=== PATIENT | female | born 1960 | race Caucasian/White ===

== ENCOUNTER 2016-08-13 13:29 | Emergency (ER) | payer OTHER ==
[2016-08-13] MEDS ORDERED: LIDOCAINE/PRILOCAINE CREAM 5 GM TUBE TOPICAL ONE (13:58)
[2016-08-13] MEDS ORDERED: BACITRACIN 1 APP/PKT PKT TOPICAL ONE (14:17)
--- NOTE | 2016-08-13 14:19 | ER PHYSICIAN DOCUMENTATION ---
Physician Documentation [facility], [place] Name:Shonda Lopez Age:56 yrs Sex:Female :1960 Arrival Date:08/13/2016 Time:13:22 Bed4 Private MD: Boy Viera Disposition: 08/13/16 13:48 Discharged to Home/Self Care. Impression: Finger Laceration. - Condition is Good. - Discharge Instructions: FINGER LACERATION - LACERATION, Hand. - Medical Reconciliation form form. - Follow up: Private Physician; When: As needed; Reason: Recheck today's complaints. - Problem is new. - Symptoms have improved. HPI: 08/13 13:27 This 56 yrs old presents to ER with complaints of Laceration To Hand - Left pinky tl1 finger. 13:27 The laceration(s) is(are) located on the RADIAL aspect of distal phalanx of left little tl1 finger. 13:27 This occurred just [employer] with a knife, while cutting a sandwich. It seemed to bleed a lot tl1 and she thought she might need a stitch. No other complaint. . Historical: - Allergies: Ibuprofen; - Home Meds: 1. metoprolol tartrate 25 mg oral tab Unknown once daily - PMHx: Hypertension; - Tetanus: < 10 years. - Ebola Screening: : No symptoms or risks identified at this time. . - Immunization history: Flu Vaccine < 1 year. - Social history: Smoking status: Patient states was never smoker of tobacco. ROS: 13:27 Skin: Positive for laceration(s). tl1 13:27 All other systems are negative. Exam: 13:27 Musculoskeletal/extremity: Extremities: grossly normal except: noted in the radial tl1 aspect of distal phalanx of left little finger: ROM: intact in all extremities, Circulation is intact in all extremities. Sensation intact. 13:27 Constitutional: This is a well developed, well nourished patient who is awake, alert, and in no acute distress. 13:27 Cardiovascular: Rate: normal. 13:27 Respiratory: Respirations: normal. 13:27 Skin: injury, laceration(s), the wound is approximately 0.7 cm(s), that can be described as clean, linear, without bleeding. Vital Signs: 13:23 BP 156 / 82 RA Sitting (auto/reg); Pulse 92 RA; Resp 16 S; Temp 98.2(O); Pulse Ox 92% em3 on R/A; Weight 102.06 kg (R); Height 5 ft. 2 in. (157.48 cm) (R); Pain 0/10; 13:23 Body Mass Index 41.15 (102.06 kg, 157.48 cm) em3 MDM: 13:27 Patient medically screened. tl1 14:10 Differential diagnosis: superficial laceration. Data reviewed: vital signs, nurses tl1 notes, and as a result, I will discharge patient. Counseling: I had a detailed discussion with the patient and/or guardian regarding: the historical points, exam findings, and any diagnostic results supporting the discharge/admit diagnosis, the need for outpatient follow up, to return to the emergency department if symptoms worsen or persist or if there are any questions or concerns that arise at home. ED course: I told her this will heal fine without stitches if she can keep it bandaged. 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 Did sen her home with some 4x4s, tube gauze, kerlex and coban.. Dispensed Medications: 14:01 Drug: EMLA Lidocaine 2.5% - Prilocaine 2.5% 1 application; Route: Topical; Infused mk4 Over: 1 mins; Site: wound; 14:14 Drug: Bacitracin Ointment (500 unit/g) 3 application; Route: Topical; Infused Over: 1 mk4 mins; Site: wound; Signatures: Suly Gusman mk4 Boy Tapia MD MD tl1
--- NOTE | 2016-08-13 14:19 | ER NURSING DOCUMENTATION ---
Nurse's Notes [facility] Name:Shonda Lopez Age:56 yrs Sex:Female :1960 Arrival Date:08/13/2016 Time:13:22 Bed4 Private MD: Diagnosis:Finger Laceration Presentation: 08/13 13:24 Acuity: TRAVIS 4 lc 13:29 Presenting complaint: Patient states: Left hand pinky finger laceration. Cut on knife mk4 while making sandwhich. Transition of care: Home. Complicating Factors: There are no complicating factors for this patient. 13:29 Method Of Arrival: Walk In [facility] Triage Assessment: 13:31 General: Appears in no apparent distress, Behavior is cooperative. Pain: Complains of mk4 pain in palmar aspect of distal phalanx of left little finger. EENT: No deficits noted. Neuro: No deficits noted. Cardiovascular: Chest pain is denied. Respiratory: Airway is patent Respiratory effort is even, unlabored, Breath sounds are clear bilaterally. GI: No deficits noted. : No deficits noted. Derm: Skin is intact. Musculoskeletal: Circulation, motion, and sensation intact Capillary refill < 3 seconds. Injury Description: Laceration sustained to palmar aspect of distal phalanx of left little finger. Historical: - Allergies: Ibuprofen; - Home Meds: 1. metoprolol tartrate 25 mg oral tab Unknown once daily - PMHx: Hypertension; - Tetanus: < 10 years. - Ebola Screening: : No symptoms or risks identified at this time. . - Immunization history: Flu Vaccine < 1 year. - Social history: Smoking status: Patient states was never smoker of tobacco. Screenin:33 Infectious Disease Risk None. Abuse screen: Denies threats or abuse. Nutritional 4 screening: No deficits noted. Assessment: 13:33 See Triage Assessment done by same RN. [facility] 14:22 Injury Description: Laceration is 0.5 to 2.5 cm long, was sustained less than 30 mk4 minutes ago. is bleeding a small amount. Vital Signs: 13:23 BP 156 / 82 RA Sitting (auto/reg); Pulse 92 RA; Resp 16 S; Temp 98.2(O); Pulse Ox 92% em3 on R/A; Weight 102.06 kg (R); Height 5 ft. 2 in. (157.48 cm) (R); Pain 0/10; 13:23 Body Mass Index 41.15 (102.06 kg, 157.48 cm) em3 ED Course: 13:22 Patient arrived in ED. em3 13:24 Triage completed. 13:25 Valuables Remains with patient Patient has correct armband on for positive em3 identification. Bed in low position. Call light in reach. Side rails up X 1. 13:27 Boy Tapia MD is Attending Physician. tl1 13:29 Suly Gusman is Primary Nurse. mk4 13:33 Allergy Band Placed Arm band placed on Bed in low position Call Light in Reach. Family mk4 accompanied patient. 13:33 Pulse ox on. NIBP on. Ice pack to injury. mk4 14:15 Dressings: Tube gauze X 1;. Wound care to laceration located on palmar aspect of distal mk4 phalanx of left little finger was cleaned with soap and water, Patient tolerated well. Administered Medications: 14:01 Drug: EMLA Lidocaine 2.5% - Prilocaine 2.5% 1 application; Route: Topical; Infused mk4 Over: 1 mins; Site: wound; 14:14 Drug: Bacitracin Ointment (500 unit/g) 3 application; Route: Topical; Infused Over: 1 mk4 mins; Site: wound; Outcome: 13:48 Discharge ordered by . tl1 14:19 Patient left the ED. mk4 14:22 Condition: good mk4 14:22 Discharge instructions given to patient, Instructed on discharge instructions, follow up and referral plans. medication usage, wound care, Demonstrated understanding of instructions. 14:24 Discharge Assessment: Patient awake, alert and oriented x 3. No cognitive and/or mk4 functional deficits noted. Patient verbalized understanding of disposition instructions. Signatures: Traci Trejo, RN Nigel Shaikh em3 Suly Gusman mk4 Boy Tapia MD MD tl1
== END 2016-08-13 14:19 | disposition home or self-care (01) ==
LOC: ER 13:29
DX: S61.217A Laceration without foreign body of left little finger without damage to nail, initial encounter (principal); W26.0XXA Contact with knife, initial encounter; Y93.G3 Activity, cooking and baking; I10 Essential (primary) hypertension; Z79.899 Other long term (current) drug therapy
CPT/HCPCS: 99283